=== PATIENT | female | born 1945 | race African-American/Black ===

== ENCOUNTER → 2018-02-01 | Outpatient (CLI) | payer BC | END | disposition home or self-care (01) | LOC: MAMMO 13:55 | DX: Z12.31 Encounter for screening mammogram for malignant neoplasm of breast (principal) | CPT/HCPCS: 77063; 77067 ==

== ENCOUNTER → 2018-10-26 | Outpatient (CLI) | payer BC ==
[2015-09-05 09:16] VITALS: BP 114/68
[~2018-10-26] MED LIST: AMLO5TAB10 PO; ATOR40TA59 PO; ERGO500027 PO; HYDR-2145 PO; NAPR-695 PO; OMEP20CA10 PO; OXYB10TA PO
--- NOTE | 2018-10-26 14:23 | KCIC ---
EXAM: Maximal facial bone CT without contrast. HISTORY: Frontal sinusitis. TECHNIQUE: Computed tomographic images of the maxillofacial bones were obtained without contrast. *One or more of the following individualized dose reduction techniques were utilized for this examination: 1. Automated exposure control. 2. Adjustment of the mA and/or kV according to patient size. 3. Use of iterative reconstruction technique. COMPARISON: None. FINDINGS: There is minimal bilateral ethmoid and maxillary sinus mucosal thickening. The ostiomeatal units are widely patent. There is no significant nasal septal deviation. There is no sinus air-fluid level or sinus wall erosion or sclerosis. The temporomandibular joints are intact. There is hyperostosis frontalis interna, an incidental finding. The orbits are unremarkable. The mastoid air cells are clear. IMPRESSION: Minimal ethmoid and maxillary sinus mucosal thickening. Electronically signed by: Vivien Garcia MD (10/26/2018 2:20 PM) [id number]
== END | disposition home or self-care (01) ==
LOC: KCIC CT 13:01
PROVIDERS: ATTEND Family Medicine
DX: J32.1 Chronic frontal sinusitis (principal); J34.89 Other specified disorders of nose and nasal sinuses; M85.2 Hyperostosis of skull
CPT/HCPCS: 70486

== ENCOUNTER → 2020-06-06 | Outpatient (CLI) | payer BC ==
[2015-09-05 09:16] VITALS: BP 114/68
[~2020-06-06] MED LIST changes: +AMLO-186 PO; -AMLO5TAB10 PO; -OMEP20CA10 PO; +OMEP20CA16 PO; -OXYB10TA PO; +OXYB10TA26 PO; +REGADENOSON 0.4 MG/5 ML DISP.SYRIN. IV ONE
--- NOTE | 2020-06-06 12:46 | RAD ---
MR#: [id number] Date of Study: 06/06/2020 Ordering Physician: JIMI CUEVA, Referring Physician: RADHA FELDMAN Tech: RT Kraig (R) (N) APPROVED REPORT Test Type: Pharmacological Stress Nurse/Tech: Li Wood Test Indications: chest pain Cardiac History: Hypertension Medications: See Electronic Medical Record Medical History: See Electronic Medical Record Resting ECG: SR Resting Heart Rate: 73 bpm Resting Blood Pressure: 196/92mmHg Nurse/Tech Notes CTA, Patient instructed to resume home medications after stress test. Pharm. Details Pharmacologic stress testing was performed using 0.4mg per 5ml of regadenoson given intravenously ove r 7-10 seconds. Stress Symptoms No chest pain or symptoms. POST EXERCISE Reason for Termination: Infusion complete Max HR: 100 bpm Max Blood Pressure: 208/96mmHg Chest Pain: No. ST Change: No. INTERPRETATION Stress EKG Conclusion: No acute changes were noted. Imaging Protocol IMAGE PROTOCOL: Rest Tc-99m/stress Tc-99m 1 day Rest: Stress: Viability: Radiopharm.Tc99m KdloqxuyvAd83q Sestamibi Dose10.9mCi 32mCi Duration 13min. 13min. Img Date 06/06/2020 06/06/2020 Inj-Img Ekfm42uzn. 60min. Rest Admin Site:IV - Right AntecubitalAdministrator:RT Kraig (R)(N) Stress Admin Site: IV - Right AntecubitalAdministrator: RT Raphael (R)(N) STRESS DATA End Diast. Vol.81.0mlLVEDV index BSA43.0ml End Syst. Vol.20.0mlLVESV index BSA11.0ml Myocardial Fyes450.0gEject. Eouhslhb94.0% Stress Scores Regional WT0.00Summed WT4.00 Regional WM0.00Summed WM0.00 LV Perfusion There is a mild reversible lateral wall perfusion defect suggestive of mild ischemia but no clear inf arct or wall motion abnormalities noted. EF > 65% LV Perf. Quant 17 Seg. SSS8.00 17 Seg. SRS2.00 17 Seg. SDS6.00 Stress Defect Extent (% LAD)0.60Rest Defect Extent (% LAD)0.00Rev. Defect Extent (% LAD)0.60 Stress Defect Extent (% LCX) 47.50Rest Defect Extent (% LCX)13.80Rev. Defect Extent (% LCX)3.80 Stress Defect Extent (% RCA)0.00Rest Defect Extent (% RCA)0.00Rev. Defect Extent (% RCA)0.00 Stress Defect Extent (% MAGGI)12.80Rest Defect Extent (% MAGGI)2.80Rev. Defect Extent (% MAGGI)0.90 Other Information Quality:Average Risk Assessment: Low-Moderate Risk Conclusion 1. No evidence of stress induced EKG changes 2. Subtle reversible lateral wall perfusion defect suggestive of mild ischemia but with normal wall m otion. 3. EF > 65% 4. Overall, moderate risk study Signed by : Bishnu Nguyen, Electronically Approved : 06/06/2020 12:46:05
--- NOTE | 2020-06-06 18:31 | CARD ---
MR#: [id number] Date of Study: 06/06/2020 Ordering Physician: JIMI CUEVA, Referring Physician: JIMI CUEVA, Tech: Caprice Marcial APPROVED REPORT EXAM: Two-dimensional and M-mode echocardiogram with Doppler and color Doppler. Other Information Quality : AverageHR: 72bpm INDICATION Chest Pain RISK FACTORS Hypertension Hyperlipidemia 2D DIMENSIONS RVDd3.0 (2.9-3.5cm)Left Atrium(2D)3.7 (1.6-4.0cm) IVSd0.9 (0.7-1.1cm)Aortic Root(2D)2.5 (2.0-3.7cm) LVDd5.2 (3.9-5.9cm)LVOT Diameter1.9 (1.8-2.4cm) PWd1.0 (0.7-1.1cm)LVDs2.8 (2.5-4.0cm) FS (%) 45.1 %SV97.3 ml LVEF(%)76.1 (>50%) Aortic Valve AoV Peak Yovani.176.5cm/sAoV VTI35.3cm AO Peak GR.12.5mmHgLVOT Peak Yovani.123.6cm/s LVOT VTI 26.57cmAO Mean GR.6mmHg JETT (VMAX)1.66nj8NVP (VTI)2.23cm2 Mitral Valve MV E Ycvakxpa148.9cm/sMV DECEL SXJB761fq MV A Fxbsnqex24.3cm/sMV EFH31jj E/A Ratio1.3MVA (PHT)3.27cm2 TDI E/Lateral E'15.2E/Medial E'16.2 Pulmonary Valve PV Peak Aujzpmhz189.7cm/sPV Peak Grad.4mmHg Tricuspid Valve TR P. Enqqopbc693gf/sRAP OOSBAHEY0avIw TR Peak Gr.89otLxKTKK30nuJp Pulmonary Vein S1 Whgmzqfp93.9cm/sD2 Npcylyvt51.9cm/s PVa szyntzvo937jlte LEFT VENTRICLE The left ventricle is normal size. There is normal left ventricular wall thickness. The left ventricu lar systolic function is normal and the ejection fraction is within normal range. The Ejection Fracti on is 60-65%. There is normal LV segmental wall motion. Transmitral Doppler flow pattern is Grade II- abnormal relaxation pattern. RIGHT VENTRICLE The right ventricle is normal size. There is normal right ventricular wall thickness. The right ventr icular systolic function is normal. ATRIA The left atrium size is normal. The right atrium size is normal. The interatrial septum is intact wit h no evidence for an atrial septal defect or patent foramen ovale as noted on 2-D or Doppler imaging. AORTIC VALVE The aortic valve is calcified but opens well. Doppler and Color Flow revealed trace aortic regurgitat ion. There is no significant aortic valvular stenosis. Calculated aortic valve area is 13 cm2 with ma ximum pressure gradient of 8 mmHg and mean pressure gradient of 2.49 mmHg. MITRAL VALVE The mitral valve is normal in structure and function. There is no evidence of mitral valve prolapse. There is no mitral valve stenosis. Doppler and Color-flow revealed trace mitral regurgitation. TRICUSPID VALVE The tricuspid valve is normal in structure and function. Doppler and Color Flow revealed trace to mil d tricuspid regurgitation with an estimated PAP of 46 mmHg. There is no tricuspid valve stenosis. PULMONIC VALVE The pulmonic valve is not well visualized. Doppler and Color Flow revealed trace pulmonic valvular re gurgitation. There is no pulmonic valvular stenosis. GREAT VESSELS The aortic root is normal in size. The IVC was not visualized. PERICARDIAL EFFUSION There is no evidence of significant pericardial effusion. Critical Notification Critical Value: No <Conclusion> The left ventricular systolic function is normal and the ejection fraction is within normal range. Th e Ejection Fraction is 60-65%. There is normal LV segmental wall motion. Doppler and Color Flow revealed trace to mild tricuspid regurgitation with an estimated PAP of 46 mmH g. Signed by : Bishnu Nguyen, Electronically Approved : 06/06/2020 18:30:41
== END ==
LOC: NM 09:02
PROVIDERS: ATTEND Internal Medicine Cardiovascular Disease
DX: I08.2 Rheumatic disorders of both aortic and tricuspid valves (principal); I10 Essential (primary) hypertension
CPT/HCPCS: 78452; 93017; 93306; A9500; J2785

== ENCOUNTER 2020-12-23 08:45 | Outpatient (CLI) | payer BC ==
[2020-12-23] VITALS (10 sets, daily range): BP systolic 135–180; BP diastolic 68–85
[~2020-12-23] VITALS: Ht 160 cm; Wt 82.0 kg
[~2020-12-23 08:45] MED LIST changes: -REGADENOSON 0.4 MG/5 ML DISP.SYRIN. IV ONE
[2020-12-23] MEDS ORDERED: IODIXANOL 320 MG/ML 100 ML VIAL. ONE (09:58)
[2020-12-23] MEDS ORDERED: LIDOCAINE 1% Multi-Dose 20 ML VIAL. ONE (09:58)
[2020-12-23 10:04] LABS: HEMATOCRIT 39.3 % (36.0-47.0); HEMOGLOBIN 13.1 g/dL (12.0-15.5); RED BLOOD COUNT 4.53 x10^6/uL (3.50-5.40); RED CELL DISTRIBUTION WIDTH 12.5 % (11.5-14.5); WHITE BLOOD COUNT 4.7 x10^3/uL (4.0-11.0)
[2020-12-23 10:12] LABS: PROTHROMBIN TIME PATIENT 13.8 SEC (11.7-14.0)
[2020-12-23] MEDS ORDERED: TRIA1CAP3 PO (10:15)
[2020-12-23] MEDS ORDERED: OXYB15TA18 PO (10:15)
[2020-12-23] MEDS ORDERED: LABE100T5 PO (10:15)
[2020-12-23] MEDS ORDERED: ATOR20TA58 PO (10:15)
[2020-12-23] MEDS ORDERED: FLUT15.812 NS (10:15)
--- NOTE | 2020-12-23 10:15 | PDOC ---
MODERATE SEDATION ASSESSMENT RISKS/ALTERNATIVES Risks/Alternatives Risks and alternatives of this type of sedation and procedure discussed with: RISK/ALTERNATIVES: Patient H & P ON CHART H & P H & P on chart and reviewed for co-morbid conditions and appropriate labs. H&P ON CHART: Yes STATUS PREG STATUS ASSESSED: N/A MEDS/ALLERGIES REVIEWED Meds/Allergies Reviewed Medications and Allergies including time and route of recently administered narcotics and sedatives. MEDS/ALLERGIES REVIEWED: Yes ASA RATING ASA RATING: III AIRWAY ASSESSMENT Airway Assessment Airway patency, oral function limitations, presence of caps, crowns, dentures, partials, and ability to extend neck assessed. AIRWAY ASSESSMENT: Yes MALLAMPATI SCORE MALLAMPATI SCORE: II PRE-SEDATION ASSESSMENT PRE-SEDATION ASSESSMENT: Yes JIMI CUEVA MD Dec 23, 2020 10:15
[2020-12-23] MEDS ORDERED: fentaNYL PF VIAL 100 MCG/2 ML VIAL ONE (10:19)
[2020-12-23] MEDS ORDERED: MIDAZOLAM HCL/PF 2 MG/2 ML VIAL. ONE (10:19)
[2020-12-23 10:20] LABS: CALCIUM 9.2 mg/dL (8.5-10.1); CREATININE 0.8 mg/dL (0.6-1.0); GFR 84.8; POTASSIUM 4.1 mmol/L (3.5-5.1)
[2020-12-23] MEDS ORDERED: fentaNYL PF VIAL 100 MCG/2 ML VIAL IV ONE (10:45)
[2020-12-23] MEDS ORDERED: IODIXANOL 320 MG/ML 100 ML VIAL. IART ONE (10:45)
[2020-12-23] MEDS ORDERED: LIDOCAINE 1% Multi-Dose 20 ML VIAL. INJ ONE (10:45)
[2020-12-23] MEDS ORDERED: MIDAZOLAM HCL/PF 2 MG/2 ML VIAL. IV ONE (10:45)
[2020-12-23] MEDS ORDERED: IV 1/2 NORMAL SALINE 1,000 ML IV SCH (11:00)
[2020-12-23] MEDS ORDERED: CONTRAST GIVEN. MC PRN (11:00)
--- NOTE | 2020-12-23 11:42 | CARD ---
MR#: [id number] Date of Study: 12/23/2020 Ordering Physician: JIMI CUEVA, Referring Physician: JIMI CUEVA Tech: RT Bill(R) APPROVED REPORT Technologist: Crystal Bardales RT(R) Nurse: Zuleyma Rowe RN Procedure(s) performed: Right and left heart catheterization, selective coronary angiography and left ventriculography MODERATE SEDATION TIME: 38 MINUTES FLUORO TIME: 4.2 MINUTES DOSE: 49.2 GYCM2 CONTRAST: 109CC VISI INDICATION The indication(s) include : Chest pain and refractory dyspnea on exertion concerning for unstable ang shanta and positive stress test. [facility] Clinical Frailty Scale [facility] Clinical Frailty Scale: Mildly Frail Heart Failure Heart Failure: No CASE TECHNIQUE IV conscious sedation was used throughout procedure with appropriate monitoring and was performed in the presence of a registered nurse who was an independent trained observer other than the physician p erforming the procedure. During this case, Fluoroscopy and low osmolar contrast were used for imaging . Specimen(s) Removed: No Estimated Blood loss: 15 cc's. PROCEDURE NARRATIVE After explaining the risks, benefits and alternative options, informed consent was obtained from antonette ent. Patient was brought to the cardiac Shake Table Operator and her right groin was prepped and draped in the u sual fashion. 20 cc of 2% lidocaine was infiltrated into the skin and subcutaneous tissues for local anesthesia. Arterial and venous accesses were obtained in the right common femoral artery and vein respectively and 6 and 8 [place] sheaths inserted. A 7.5 [place] Grayson-Laura catheter was then advanced under fluoroscopy guidance and intracardiac pressures, oxygen saturations and cardiac output by Shameka method measured. Subsequently, 6 [place] JL4 and 6 [place] JR4 catheters were used to perform selectiv e angiography of the left and right coronary arteries. 6 [place] pigtail catheter was used to perform left ventriculography. Patient tolerated the procedure well. Hemostasis was achieved using Angio-S eal and manual compression. There were no immediate complications. FINDINGS A. RIGHT HEART CATHETEIZATION 1. Intracardiac pressures: Mean right atrial pressure 8 mmHg, right ventricular pressure 36/4 mmHg, pulmonary artery pressure 25/4 mmHg with mean PA pressure 14 mmHg and mean pulmonary capillary wedge pressure 13 mmHg. No pulmonary hypertension. 2. Oxygen saturations: Right atrium 72.3%, pulmonary artery 75.2%, femoral arterial sheath 98 1%. N o evidence of intracardiac shunt. 3. Cardiac output by Shameka method 4.1 L/min. B. LEFT HEART CATHETERIZATION 1. Hemodynamics: Left ventricular end-diastolic pressure 12 mmHg. No pullback gradient across aorti c valve. 2. Left ventriculography: Normal left ventricle systolic function with ejection fraction estimated a t 60 to 65%. No significant mitral regurgitation seen. 3. Coronary angiography: a. The left main coronary artery arose from the left sinus of Valsalva, gave rise to the left anteri or descending and left circumflex arteries and did not show any significant stenosis. b. The left anterior descending artery did not show any significant stenosis. c. The left circumflex artery was a large and dominant vessel that did not show any significant sten osis. d. The right coronary artery was a small and nondominant vessel arising from the right sinus of Vals alfonso that did not show any significant stenosis. Conclusion 1. Left dominant system without any significant coronary artery stenosis. 2. No evidence of pulmonary hypertension or intracardiac shunt. 3. Normal left ventricular systolic function with ejection fraction 60 to 65%. Recommendations Cardiovascular risk factor modification, graded exercise regimen and weight loss. Signed by : Jimi Cueva, Electronically Approved : 12/23/2020 11:41:45
--- NOTE | 2020-12-23 13:06 | NUR ---
Patient able to sit up in bed x5 min, then ambulate to restroom. Has been supine, flat for 2 hours. No bleeding noted after walking. Patient tolerated well. No pain or sign of bleeding.
--- NOTE | 2020-12-23 14:22 | NUR ---
PIV removed. VS stable. No bleeding at R groin access site after patient walked, changed clothes. No pain or sign of hematoma. Instructions provided on site care, sedation. Patient and verbalized understanding. All belongings taken w/ patient at time of d/c.
== END 2020-12-23 14:15 | disposition home or self-care (01) ==
LOC: CCL 08:45
PROVIDERS: ATTEND Internal Medicine Cardiovascular Disease
DX: R07.9 Chest pain, unspecified (principal); R06.09 Other forms of dyspnea; I10 Essential (primary) hypertension; E78.00 Pure hypercholesterolemia, unspecified; K21.9 Gastro-esophageal reflux disease without esophagitis; G47.30 Sleep apnea, unspecified; M19.90 Unspecified osteoarthritis, unspecified site; Z87.440 Personal history of urinary (tract) infections; Z79.899 Other long term (current) drug therapy; Z98.51 Tubal ligation status; Z98.890 Other specified postprocedural states; Z88.2 Allergy status to sulfonamides
CPT/HCPCS: 36415; 80048; 85027; 85610; 87426; 93460; 99152; 99153; C1760; C1769; C1773; C1892; J1644; J2250; J3010; J3490; Q9967; G0269